=== PATIENT | female | born 1935 | race Caucasian/White ===

== ENCOUNTER 2023-05-23 04:20 | Emergency (ER) | payer OTHER ==
[2023-05-23 04:25] VITALS: BMI 18.8
[2023-05-23 18:05] VITALS: BP 159/85; PULSE 75; RESP 18; TEMP 98
== END 2023-05-23 17:00 ==
LOC: JER 04:20
DX: R41.0 Disorientation, unspecified (principal); W19.XXXA Unspecified fall, initial encounter
CPT/HCPCS: 70450-TC; 71045-TC-FY; 72125-TC; 93005; 93010; 99285-25

== ENCOUNTER 2023-09-07 13:14 | Emergency (ER) | payer OTHER ==
[2023-09-07] MEDS ORDERED: LIDOCAINE 4% PATCH TP ONE (13:52)
[2023-09-07] MEDS ORDERED: ACETAMINOPHEN 325 MG TABLET (FP) ONE (13:52)
[2023-09-07] MEDS: ACETAMINOPHEN 500 MG TABLET (FP) PO ONE (13:58)
[2023-09-07] MEDS: LIDOCAINE 4% PATCH TP ONE (13:58)
[2023-09-07 14:28] VITALS: TEMP 99; BMI 44.3
[2023-09-07 14:42] VITALS: BP 152/50; PULSE 74; RESP 18
[2023-09-07] MEDS ORDERED: LORazepam 1 MG TABLET ONE (17:52)
[2023-09-07] MEDS: LORazepam 2 MG TABLET PO ONE (17:54)
[2023-09-07] MEDS ORDERED: LIDOCAINE PATCH REMOVAL MC ONE (22:00)
== END 2023-09-07 17:55 | disposition admitted as inpatient to this hospital (09) ==
LOC: JER 13:14
DX: M16.11 Unilateral primary osteoarthritis, right hip (principal); G30.9 Alzheimer's disease, unspecified; M54.50 Low back pain, unspecified
CPT/HCPCS: 72170-TC-FY; 99283-25

== ENCOUNTER 2024-05-12 11:27 | Inpatient (IN) | payer OTHER ==
[2024-05-12 13:12] LABS: BASO % 0.6 % (0-2.0); MCH 32.7 pg (25.7-33.7); MCHC 32.4 g/dl (32.0-36.0); MEAN PLT VOLUME 8.8 fl (7.5-11.1)
[2024-05-12 13:14] LABS: EOS % 2.9 % (0-4.5); HEMATOCRIT 31.4 % (32.4-45.2); HEMOGLOBIN 10.1 GM/dL (10.7-15.3); LYMPH % 27.1 % (8-40); MEAN CELL VOLUME 100.9 fl (80-96); NEUT % 63.4 % (42.8-82.8); PLATELET COUNT 327 10^3/uL (134-434); RBC 3.11 M/mm3 (3.60-5.2); RDW 23.2 % (11.6-15.6); WHITE BLOOD COUNT 7.5 K/mm3 (4.0-10.0)
[2024-05-12 13:19] LABS: VENOUS BASE EXCESS -1.5 mmol/L (-2-2); VENOUS O2 SATURATION 41.9 % (70-80); VENOUS PCO2 39.6 mmHg (38-52); VENOUS PH 7.388 (7.310-7.410)
[2024-05-12 13:32] LABS: POTASSIUM 4.2 mmol/L (3.5-5.1)
[2024-05-12 13:34] LABS: ALBUMIN 3.5 g/dl (3.4-5.0); CALCIUM 8.6 mg/dL (8.5-10.1)
[2024-05-12 13:35] LABS: BLOOD UREA NITROGEN 28.7 mg/dL (7-18)
[2024-05-12 13:37] LABS: ANISOCYTOSIS 1+; MACROCYTOSIS 0
[2024-05-12 13:38] LABS: CREATININE 0.6 mg/dL (0.55-1.3)
[2024-05-12 13:39] LABS: BILIRUBIN,TOTAL 0.6 mg/dL (0.2-1); TOT PROT 6.3 g/dl (6.4-8.2)
[2024-05-12] MEDS: SODIUM CHLORIDE 0.9% 500 ML INFUS.BAG IV ONE (15:08)
[2024-05-12 15:38] LABS: URINE APPEARANCE CLEAR; URINE BILIRUBIN NEGATIVE (NEGATIVE); URINE COLOR YELLOW; URINE GLUCOSE (UA) NEGATIVE (NEGATIVE); URINE KETONE NEGATIVE (NEGATIVE); URINE LEUK ESTERASE NEGATIVE (NEGATIVE); URINE NITRITE NEGATIVE (NEGATIVE); URINE PROTEIN TRACE (NEGATIVE); URINE UROBILINOGEN 0.2 mg/dL (0.2-1.0)
[2024-05-12] MEDS ORDERED: traZODone HCL 50 MG TABLET (FP) ONE ×2 (16:17→22:03)
[2024-05-12] MEDS: traZODone HCL 50 MG TABLET (FP) PO ONE (16:26)
[2024-05-12] MEDS ORDERED: HALOPERIDOL LACTATE 5 MG/ML ONE ×2 (17:21→18:19)
[2024-05-12] MEDS: HALOPERIDOL LACTATE 5 MG/ML IM ONE ×2 (17:34→18:38)
[2024-05-12 21:51] LABS: N-TERMINAL BNP 1529.2 pg/ml (5-450)
[2024-05-12] MEDS ORDERED: MELATONIN 5 MG TABLETS PO SCH (22:00)
[2024-05-12] MEDS ORDERED: traZODone HCL 50 MG TABLET (FP) PO SCH (22:00)
[2024-05-12] MEDS ORDERED: ASCORBIC ACID 500 MG TABLET (FP) ONE (22:02)
[2024-05-12] MEDS ORDERED: MELATONIN 5 MG TABLETS ONE (22:02)
[2024-05-12] MEDS ORDERED: MIRTAZAPINE 15 MG TABLET (FP) ONE (22:03)
[2024-05-12] MEDS ORDERED: LIDOCAINE 4% PATCH TP ONE (22:03)
[2024-05-12] MEDS: MIRTAZAPINE 15 MG TABLET (FP) PO SCH (22:15)
[2024-05-12] MEDS: MELATONIN 5 MG, MELATONIN 1 MG PO SCH (22:15)
[2024-05-12] MEDS: ASCORBIC ACID 500 MG TABLET (FP) PO SCH (22:16)
[2024-05-12] MEDS ORDERED: AMPICILLIN NA/SULBACTAM NA 1.5 GM in SODIUM CHLORIDE 100 ML IVPB SCH (22:30)
[2024-05-12] MEDS ORDERED: AMPICILLIN NA/SULBACTAM NA 1.5 GM VIAL ONE (22:35)
[2024-05-12] MEDS: AMPICILLIN NA/SULBACTAM NA 1.5 GM in SODIUM CHLORIDE 100 ML IVPB SCH (23:00)
[2024-05-12] MEDS: LIDOCAINE 4% PATCH TP SCH (23:00)
[2024-05-13] MEDS: traZODone HCL 50 MG TABLET (FP) PO ONE (02:34)
[2024-05-13] MEDS: LIDOCAINE PATCH REMOVAL MC SCH ×2 (03:02→10:56)
[2024-05-13] MEDS: FUROSEMIDE 40 MG/4 ML INJECTABLE VIAL IVPUSH ONE (04:04)
[2024-05-13] MEDS ORDERED: hydrOXYzine PAMOATE 25 MG CAPSULE (FP) PO ONE (04:20)
[2024-05-13] MEDS: hydrOXYzine HCL 50 MG TABLET PO ONE (04:23)
[2024-05-13] MEDS ORDERED: AMPICILLIN NA/SULBACTAM NA 1.5 GM VIAL ONE (04:28)
[2024-05-13] MEDS: hydrOXYzine PAMOATE 25 MG CAPSULE (FP) PO ONE (04:45)
[2024-05-13 06:25] LABS: HEMATOCRIT 35.2 % (32.4-45.2); HEMOGLOBIN 11.4 GM/dL (10.7-15.3); MCH 32.6 pg (25.7-33.7); MCHC 32.3 g/dl (32.0-36.0); MEAN CELL VOLUME 101.1 fl (80-96); MEAN PLT VOLUME 9.3 fl (7.5-11.1); PLATELET COUNT 388 10^3/uL (134-434); RBC 3.48 M/mm3 (3.60-5.2); RDW 23.1 % (11.6-15.6); WHITE BLOOD COUNT 12.5 K/mm3 (4.0-10.0)
[2024-05-13 06:42] LABS: CHLORIDE 111 mmol/L (98-107); SODIUM 142 mmol/L (136-145)
[2024-05-13 06:43] LABS: CALCIUM 9.3 mg/dL (8.5-10.1)
[2024-05-13 06:44] LABS: ANION GAP 7 mmol/L (4-13); BLOOD UREA NITROGEN 21.3 mg/dL (7-18); CO2 24 mmol/L (21-32); GLUCOSE,RANDOM 107 mg/dL (74-106)
[2024-05-13 06:47] LABS: CREATININE 0.7 mg/dL (0.55-1.3)
[2024-05-13] MEDS ORDERED: LIDOCAINE 4% PATCH TP SCH (10:00)
[2024-05-13] MEDS ORDERED: traZODone HCL 50 MG TABLET (FP) PO SCH (10:00)
[2024-05-13] MEDS ORDERED: PATIENT'S OWN MEDICATION (NON-FORMULARY) (Galantamine Hbr [Galantamine Er] 8 MG Cap24h.Pel PO SCH (10:00)
[2024-05-13] MEDS: traZODone HCL 50 MG TABLET (FP) PO SCH (10:54)
[2024-05-13] MEDS: MULTIVITAMINS (DAILY MVI) TABLET (FP) PO SCH (10:55)
[2024-05-13] MEDS: FUROSEMIDE 20 MG TABLET (FP) PO SCH (10:55)
[2024-05-13] MEDS: ENOXAPARIN NA (PORCINE) 40 MG/0.4 ML DISP.SYRIN SQ SCH (10:57)
[2024-05-13] MEDS: LORazepam 2 MG/ML SDV VIAL IVPUSH ONE (14:05)
[2024-05-13] MEDS: VENLAFAXINE HCL 75 MG E.R. CAPSULES PO SCH (16:15)
[2024-05-13] MEDS: LORazepam 2 MG/ML SDV VIAL IVPUSH SCH (18:03)
[2024-05-14 09:50] LABS: BASO % 0.6 % (0-2.0); EOS % 2.3 % (0-4.5); HEMATOCRIT 32.6 % (32.4-45.2); HEMOGLOBIN 10.7 GM/dL (10.7-15.3); LYMPH % 16.5 % (8-40); MCH 33.2 pg (25.7-33.7); MCHC 32.8 g/dl (32.0-36.0); MEAN CELL VOLUME 101.1 fl (80-96); MEAN PLT VOLUME 9.6 fl (7.5-11.1); MONO % 7.5 % (3.8-10.2); NEUT % 73.1 % (42.8-82.8); PLATELET COUNT 298 10^3/uL (134-434); RBC 3.22 M/mm3 (3.60-5.2); RDW 23.7 % (11.6-15.6); WHITE BLOOD COUNT 8.4 K/mm3 (4.0-10.0)
[2024-05-14 10:10] LABS: POTASSIUM 3.5 mmol/L (3.5-5.1)
[2024-05-14 10:12] LABS: BLOOD UREA NITROGEN 29.8 mg/dL (7-18); CALCIUM 8.4 mg/dL (8.5-10.1); MAGNESIUM 2.1 mg/dL (1.8-2.4)
[2024-05-14 10:16] LABS: CREATININE 0.8 mg/dL (0.55-1.3)
[2024-05-14 10:21] LABS: N-TERMINAL BNP 5171.9 pg/ml (5-450)
[2024-05-15 12:43] VITALS: BMI 23.0
[2024-05-15] MEDS ORDERED: GALANTAMINE HBR 4 MG PO SCH (14:48)
[2024-05-15] MEDS: QUEtiapine FUMARATE 25 MG TABLET PO SCH ×2 (15:53→21:39)
[2024-05-15 16:25] LABS: BASO % 0.8 % (0-2.0); EOS % 1.8 % (0-4.5); HEMATOCRIT 34.5 % (32.4-45.2); HEMOGLOBIN 11.4 GM/dL (10.7-15.3); LYMPH % 17.9 % (8-40); MCH 33.4 pg (25.7-33.7); MEAN CELL VOLUME 101.1 fl (80-96); MEAN PLT VOLUME 9.7 fl (7.5-11.1); NEUT % 71.5 % (42.8-82.8); PLATELET COUNT 316 10^3/uL (134-434); RBC 3.42 M/mm3 (3.60-5.2); RDW 23.3 % (11.6-15.6); WHITE BLOOD COUNT 9.4 K/mm3 (4.0-10.0)
[2024-05-15 16:44] LABS: POTASSIUM 3.7 mmol/L (3.5-5.1)
[2024-05-15 16:47] LABS: CALCIUM 8.9 mg/dL (8.5-10.1)
[2024-05-15 16:51] LABS: CREATININE 0.8 mg/dL (0.55-1.3)
[2024-05-15] MEDS: traZODone HCL 50 MG TABLET (FP) PO SCH (21:38)
[2024-05-16] MEDS: QUEtiapine FUMARATE 25 MG TABLET PO SCH (08:52)
[2024-05-16 10:13] LABS: BASO % 0.3 % (0-2.0); HEMATOCRIT 31.7 % (32.4-45.2); HEMOGLOBIN 10.3 GM/dL (10.7-15.3); LYMPH % 19.7 % (8-40); MCHC 32.5 g/dl (32.0-36.0); MEAN CELL VOLUME 101.5 fl (80-96); MEAN PLT VOLUME 9.6 fl (7.5-11.1); MONO % 8.3 % (3.8-10.2); NEUT % 66.7 % (42.8-82.8); PLATELET COUNT 241 10^3/uL (134-434); RBC 3.12 M/mm3 (3.60-5.2); RDW 22.7 % (11.6-15.6); WHITE BLOOD COUNT 5.8 K/mm3 (4.0-10.0)
[2024-05-16 10:34] VITALS: BP 127/44; PULSE 68; RESP 14; TEMP 98.2
[2024-05-16] MEDS: VENLAFAXINE HCL 75 MG E.R. CAPSULES PO SCH (10:39)
[2024-05-16 11:19] LABS: POTASSIUM 3.6 mmol/L (3.5-5.1)
[2024-05-16 11:23] LABS: ALBUMIN 3.3 g/dl (3.4-5.0); CALCIUM 8.5 mg/dL (8.5-10.1)
[2024-05-16 11:24] LABS: BLOOD UREA NITROGEN 31.8 mg/dL (7-18); MAGNESIUM 1.8 mg/dL (1.8-2.4)
[2024-05-16 11:27] LABS: CREATININE 0.6 mg/dL (0.55-1.3)
[2024-05-16 11:28] LABS: BILIRUBIN,TOTAL 0.9 mg/dL (0.2-1); TOT PROT 6.1 g/dl (6.4-8.2)
[2024-05-16] MEDS: QUEtiapine FUMARATE 25 MG TABLET PO ONE (14:05)
== END 2024-05-16 14:18 | DRG 56 ==
LOC: JER 11:27 → OBSVTOIN 17:12 → JERBED 17:12 → J5S 05-13 08:55
PROVIDERS: ADMIT Student in an Organized Health Care Education/Training Program; ATTEND Internal Medicine
DX: G30.9 Alzheimer's disease, unspecified (principal); E43 Unspecified severe protein-calorie malnutrition; J96.01 Acute respiratory failure with hypoxia; G92.8 Other toxic encephalopathy; F02.818 Dementia in other diseases classified elsewhere, unspecified severity, with other behavioral disturbance; L03.115 Cellulitis of right lower limb; I50.32 Chronic diastolic (congestive) heart failure; F02.811 Dementia in other diseases classified elsewhere, unspecified severity, with agitation; J98.11 Atelectasis; F41.9 Anxiety disorder, unspecified; F32.A Depression, unspecified; D64.9 Anemia, unspecified; E86.0 Dehydration; R33.9 Retention of urine, unspecified; R13.10 Dysphagia, unspecified; Z68.23 Body mass index [BMI] 23.0-23.9, adult; I27.20 Pulmonary hypertension, unspecified
CPT/HCPCS: 0241U-QW; 36415; 71045-TC-FY; 71275-TC; 80048; 80053; 80061; 81003; 81401; 82570; 82607; 82803; 83735; 83880; 84300; 84439; 84443; 84484; 85025; 85027; 86140; 86780; 87040; 87081; 87086; 93005; 93010; 93306-TC; 93971-TC; 97116-GP; 97162-GP; 99285-25; Q9967

== ENCOUNTER 2024-05-23 18:44 | Inpatient (IN) | payer OTHER ==
[2024-05-23 20:01] LABS: EOS % 2.7 % (0-4.5); HEMATOCRIT 27.6 % (32.4-45.2); HEMOGLOBIN 9.3 GM/dL (10.7-15.3); LYMPH % 26.7 % (8-40); MCH 33.6 pg (25.7-33.7); MCHC 33.6 g/dl (32.0-36.0); MEAN CELL VOLUME 100.1 fl (80-96); MEAN PLT VOLUME 8.5 fl (7.5-11.1); MONO % 11.4 % (3.8-10.2); NEUT % 58.2 % (42.8-82.8); PLATELET COUNT 343 10^3/uL (134-434); RBC 2.75 M/mm3 (3.60-5.2); RDW 22.9 % (11.6-15.6); WHITE BLOOD COUNT 6.6 K/mm3 (4.0-10.0)
[2024-05-23] MEDS: LACTATED RINGERS SOLUTION 1000 ML INFUS.BAG IV ONE (20:14)
[2024-05-23 20:19] LABS: MACROCYTOSIS 2+
[2024-05-23 20:25] LABS: POTASSIUM 3.1 mmol/L (3.5-5.1)
[2024-05-23 20:26] LABS: CALCIUM 8.6 mg/dL (8.5-10.1)
[2024-05-23 20:27] LABS: ALBUMIN 3.4 g/dl (3.4-5.0); BLOOD UREA NITROGEN 24.1 mg/dL (7-18)
[2024-05-23 20:30] LABS: CREATININE 0.9 mg/dL (0.55-1.3)
[2024-05-23 20:32] LABS: BILIRUBIN,TOTAL 0.5 mg/dL (0.2-1); TOT PROT 6.1 g/dl (6.4-8.2)
[2024-05-23] MEDS ORDERED: POTASSIUM CHLORIDE ORAL LIQUID 20 MEQ/15 ML ONE (21:47)
[2024-05-23] MEDS ORDERED: CEFTRIAXONE 1 G/50 ML PREMIX 50 ML IVPB ONE (21:47)
[2024-05-23] MEDS: CEFTRIAXONE 1,000 MG in DEXTROSE 5%-WATER - 50 ML IVPB ONE (21:54)
[2024-05-23] MEDS: POTASSIUM CHLORIDE ORAL LIQUID 20 MEQ/15 ML PO ONE (21:54)
[2024-05-23] MEDS ORDERED: VANCOMYCIN 1 GM PREMIX (F) 1 GM/200 ML BAG ONE (22:14)
[2024-05-23] MEDS: VANCOMYCIN 1,000 MG in DEXTROSE 5%-WATER - 250 ML IVPB ONE (22:25)
[2024-05-23 22:55] LABS: PH,URINE 6.5 (5.0-8.0); URINE APPEARANCE CLEAR; URINE BILIRUBIN NEGATIVE (NEGATIVE); URINE COLOR YELLOW; URINE GLUCOSE (UA) NEGATIVE (NEGATIVE); URINE KETONE NEGATIVE (NEGATIVE); URINE LEUK ESTERASE NEGATIVE (NEGATIVE); URINE NITRITE NEGATIVE (NEGATIVE); URINE PROTEIN NEGATIVE (NEGATIVE); URINE UROBILINOGEN 0.2 mg/dL (0.2-1.0)
[2024-05-23] MEDS ORDERED: MIDAZOLAM HCL 2 MG/2 ML SINGLE DOSE VIAL ONE (23:29)
[2024-05-23] MEDS: MIDAZOLAM HCL 2 MG/2 ML SINGLE DOSE VIAL IVPUSH ONE (23:37)
[2024-05-24] MEDS: DOXYCYCLINE INJECTION 100 MG in DEXTROSE 5%-WATER 100 ML IVPB ONE (00:14)
[2024-05-24] MEDS ORDERED: LORazepam 1 MG TABLET ONE (00:16)
[2024-05-24] MEDS: LORazepam 2 MG TABLET PO ONE (00:20)
[2024-05-24] MEDS ORDERED: MIDAZOLAM HCL 2 MG/2 ML SINGLE DOSE VIAL ONE (00:40)
[2024-05-24] MEDS: MIDAZOLAM HCL 2 MG/2 ML SINGLE DOSE VIAL IVPUSH ONE (00:45)
[2024-05-24] MEDS: ARIPiprazole 2 MG TABLET PO ONE (02:15)
[2024-05-24] MEDS ORDERED: ALBUTEROL SO4 2.5/IPRATROPIUM 0.5 INH SOL 3 ML VIAL.NEB. NEB PRN (02:32)
[2024-05-24] MEDS ORDERED: HALOPERIDOL LACTATE 5 MG/ML IM PRN (02:48)
[2024-05-24] MEDS: HALOPERIDOL LACTATE 5 MG/ML IM ONE ×3 (03:15→04:18)
[2024-05-24] MEDS: traZODone HCL 50 MG TABLET (FP) PO ONE (04:18)
[2024-05-24 05:30] VITALS: BMI 21.6
[2024-05-24] MEDS ORDERED: QUEtiapine FUMARATE 25 MG TABLET PO SCH ×2 (08:00→22:00)
[2024-05-24] MEDS ORDERED: GALANTAMINE HBR 4 MG PO SCH (10:00)
[2024-05-24 10:04] LABS: HEMATOCRIT 32.8 % (32.4-45.2); HEMOGLOBIN 10.7 GM/dL (10.7-15.3); MCHC 32.6 g/dl (32.0-36.0); MEAN CELL VOLUME 101.1 fl (80-96); MEAN PLT VOLUME 9.2 fl (7.5-11.1); PLATELET COUNT 376 10^3/uL (134-434); RBC 3.24 M/mm3 (3.60-5.2); RDW 23.2 % (11.6-15.6); WHITE BLOOD COUNT 8.6 K/mm3 (4.0-10.0)
[2024-05-24 10:49] LABS: POTASSIUM 3.7 mmol/L (3.5-5.1)
[2024-05-24 10:53] LABS: ALBUMIN 3.6 g/dl (3.4-5.0); BLOOD UREA NITROGEN 20.7 mg/dL (7-18)
[2024-05-24 10:56] LABS: CREATININE 0.7 mg/dL (0.55-1.3)
[2024-05-24 10:57] LABS: BILIRUBIN,TOTAL 0.7 mg/dL (0.2-1); TOT PROT 6.3 g/dl (6.4-8.2)
[2024-05-24] MEDS: VENLAFAXINE HCL 75 MG E.R. CAPSULES PO SCH (11:24)
[2024-05-24] MEDS: LIDOCAINE 4% PATCH TP SCH (11:25)
[2024-05-24] MEDS: ASCORBIC ACID 500 MG TABLET (FP) PO SCH (11:25)
[2024-05-24] MEDS: QUEtiapine FUMARATE 25 MG TABLET PO SCH ×2 (11:25→21:31)
[2024-05-24] MEDS: LACTOBACILLUS ACIDOPHILUS 1 TABLET PO SCH (11:25)
[2024-05-24] MEDS: FERROUS SO4 325 MG TABLET (FP) PO SCH (11:25)
[2024-05-24] MEDS: FUROSEMIDE 20 MG TABLET (FP) PO SCH (11:25)
[2024-05-24] MEDS: MULTIVITAMINS (DAILY MVI) TABLET (FP) PO SCH (11:25)
[2024-05-24] MEDS: ENOXAPARIN NA (PORCINE) 40 MG/0.4 ML DISP.SYRIN SQ SCH (11:26)
[2024-05-24] MEDS: MAGNESIUM HYDROX 2400MG/30ML ORAL SUSPENSION 30 ML CUP PO SCH (11:39)
[2024-05-24] MEDS: ACETAMINOPHEN 325 MG TABLET (FP) PO SCH (17:44)
[2024-05-24 21:17] VITALS: RESP 18
[2024-05-24] MEDS: traZODone HCL 50 MG TABLET (FP) PO SCH (21:30)
[2024-05-24] MEDS: LIDOCAINE PATCH REMOVAL MC SCH (21:31)
[2024-05-24] MEDS: MELATONIN 1 MG TABLET PO SCH (21:31)
[2024-05-24] MEDS: SENNOSIDES 8.6MG TABLET (FP) PO SCH (21:31)
[2024-05-26 10:10] VITALS: BP 118/98; PULSE 109; TEMP 98.1
[2024-05-26] MEDS ORDERED: OLANZapine 5 MG TABLET PO SCH (22:00)
== END 2024-05-26 12:22 | DRG 56 ==
LOC: JER 18:44 → JERBED 20:36 → J6S 05-24 04:58 → OBSVTOIN 05-24 09:57
PROVIDERS: ADMIT Internal Medicine; ATTEND Internal Medicine
DX: G30.9 Alzheimer's disease, unspecified (principal); E43 Unspecified severe protein-calorie malnutrition; F02.C11 Dementia in other diseases classified elsewhere, severe, with agitation; F41.8 Other specified anxiety disorders; L89.152 Pressure ulcer of sacral region, stage 2; K59.00 Constipation, unspecified; Z68.21 Body mass index [BMI] 21.0-21.9, adult
CPT/HCPCS: 0241U-QW; 36415; 70450-TC; 71045-TC-FY; 71250-TC; 80053; 81003; 82607; 82746; 82962; 83605; 84484; 85025; 85027; 87086; 93005; 93010; 93971-TC; 99285-25; G0378